=== PATIENT | female | born 1995 | race American Indian/Alaskan Native ===

== ENCOUNTER 2017-07-09 11:53 | Outpatient (CLI) | payer MEDICAID ==
[2017-07-09 12:30] VITALS: BP 119/67
[2017-07-09] MEDS ORDERED: LACTATED RINGERS 1,000 ML ONE (12:41)
[2017-07-09] MEDS ORDERED: XYLOCAINE 1% MPF 5 mL INFILTRATI ONE (13:11)
[2017-07-09] MEDS ORDERED: LACTATED RINGERS 500 ML IV ONE (13:12)
[2017-07-09] MEDS ORDERED: ROCEPHIN 500 MG in NACL 0.9% 50 ML IV NR (14:00)
--- NOTE | 2017-07-09 15:11 | History and Physical Report ---
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 Essential history this patient with viral infection this week with vomiting and diarrhea. He was seen in the physician's office complaining of contractions and she was sent over to triage for IV hydration and antibiotics to rule out UTI. In triage, she has a category 1 tracing and has received 2 units of IV fluid with contractions still present. 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 denies: smoking, alcohol abuse, prescription drug abuse, IV drug use - Obstetrical History Expected Date of Delivery: 08/04/17 Actual Gestation: 36 Week(s) 2 Day(s) : 3 Para: 2 Medications and Allergies Allergies Allergy/AdvReac Type Severity Reaction Status Date / Time No Known Allergies Allergy Unverified 11/02/15 09:44 Home Medications Medication Instructions Recorded Confirmed Last Taken Type Vit-Fe Fumar-FA [ 1 tab PO QDAY #90 tablet 11/02/15 06/29/16 2 Days Ago Rx Vitamin] Nitrofurantoin [place]/M-Cryst 100 mg PO Q12HR #14 capsule 02/21/16 06/29/16 2 Days Ago Rx [Macrobid CAP] Active Meds: Active Medications Ceftriaxone Sodium 500 mg/ (Sodium Chloride) 50 mls @ 100 mls/hr IV PREOP NR Stop: 07/09/17 23:59 Last Admin: 07/09/17 13:58 Dose: 100 mls/hr Review of Systems Constitutional: no fever, no chills, no weakness, no malaise Cardiovascular: no chest pain, no syncope, no lightheadedness, no shortness of breath, no dyspnea on exertion, no high blood pressure Respiratory: no cough, no shortness of breath, no dyspnea on exertion Gastrointestinal: abdominal pain, no nausea, no vomiting, no heartburn, no indigestion Genitourinary: no vaginal bleeding, no vaginal discharge, no leakage of fluid - Vital Signs Vital signs: Vital Signs Pulse Pulse Ox 93 H 95 07/09/17 12:25 07/09/17 12:25 Temp Pulse Resp BP Pulse Ox 98.0 F 102 H 18 119/67 96 07/09/17 12:29 07/09/17 15:07 07/09/17 12:29 07/09/17 12:29 07/09/17 15:07 - Physical Exam Cardiovascular: Regular rate, Normal S1, Normal S2 Lungs: Positive: Clear to auscultation, Normal air movement Abdomen: Positive: normal appearance, soft. Negative: distention, tenderness, guarding, rigidity Genitourinary (Female): Positive: normal external genitalia Uterus: Positive: enlarged (EFW ~ 3500). Negative: tender Adnexa: both: normal Extremities: Positive: normal - Obstetrical FHR: category 1 Cervical Dilatation: 4 (per RN) Results All other labs normal. Assessment and Plan A: 22-year-old 002 at 36+2 weeks with viral syndromefollowed by painful contractions -Cat 1 tracing -Cephalic presentation P: -Will repeat exam in 1-2 hours -If no cervical change, we'll discharge home - Patient Problems (1) 36 weeks gestation of Current Visit: Yes Status: Acute (2) Uterine contractions Current Visit: Yes Status: Acute
== END 2017-07-09 17:01 | disposition home or self-care (01) ==
LOC: TRG 11:53
PROVIDERS: ATTEND Obstetrics & Gynecology
DX: O47.03 False labor before 37 completed weeks of gestation, third trimester (principal); Z87.891 Personal history of nicotine dependence; Z3A.36 36 weeks gestation of pregnancy
CPT/HCPCS: 59025; 96360; J0696; J7120

== ENCOUNTER 2017-07-10 11:53 | Inpatient (IN) | payer MEDICAID ==
[2017-07-10] MEDS ORDERED: SUBLIMAZE IV PRN (12:10)
[2017-07-10] MEDS ORDERED: MINERAL OIL PO PRN (12:10)
[2017-07-10] MEDS ORDERED: ePHEDrine SULFATE IV PRN (12:10)
[2017-07-10] MEDS ORDERED: BRETHINE IVP PRN (12:10)
[2017-07-10] MEDS ORDERED: BRETHINE SUB-Q PRN (12:10)
--- NOTE | 2017-07-10 12:16 | History and Physical Report ---
History of Present Illness Date of examination: 07/10/17 Date of admission: 07/10/17 12:07 Chief complaint: Having contractions since 1100 History of present illness: 22yo now 36.3 weeks presents in active labor GBS unknown. care at [facility] since 31 weeks. HSV2 positive,Rubella NON immune. 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 Family/Genetic History: none Social history: no significant social history - Obstetrical History Expected Date of Delivery: 08/04/17 Actual Gestation: 36 Week(s) 3 Day(s) : 3 Para: 2 Number of Living Children: 2 Medications and Allergies Allergies Allergy/AdvReac Type Severity Reaction Status Date / Time No Known Allergies Allergy Unverified 11/02/15 09:44 Home Medications Medication Instructions Recorded Confirmed Last Taken Type Vit-Fe Fumar-FA [ 1 tab PO QDAY #90 tablet 11/02/15 06/29/16 2 Days Ago Rx Vitamin] Nitrofurantoin [place]/M-Cryst 100 mg PO Q12HR #14 capsule 02/21/16 06/29/16 2 Days Ago Rx [Macrobid CAP] Active Meds: Active Medications Ephedrine Sulfate (Ephedrine Sulfate) 10 mg IV Q2M PRN PRN Reason: Hypotension Stop: 07/10/17 12:15 Fentanyl (Sublimaze) 100 mcg IV Q2H PRN PRN Reason: Labor Pain Lactated Ringer's (Lactated Ringers) 1,000 mls @ 125 mls/hr IV DIRECT MERLIN Oxytocin/Sodium Chloride (Pitocin/Ns 20 Unit/1000ml Drip) 20 units in 1,000 mls @ 125 mls/hr IV DIRECT MERLIN Oxytocin/Sodium Chloride (Pitocin/Ns 30 Unit/500ml) 30 units in 500 mls @ 1 mls /hr IV TITR MERLIN; 1 MILLIUNITS/MIN PRN Reason: Protocol Mineral Oil (Mineral Oil) 30 ml PO QHS PRN PRN Reason: Constipation Terbutaline Sulfate (Brethine) 0.25 mg SUB-Q ONCE PRN PRN Reason: Hyperstimulation/Hypertonicity Stop: 07/10/17 12:11 Terbutaline Sulfate (Brethine) 0.25 mg IVP ONCE PRN PRN Reason: Hyperstimulation/Hypertonicity Stop: 07/10/17 12:11 Review of Systems All systems: negative - Vital Signs Vital signs: Vital Signs Temp Pulse Resp BP 97.1 F L 77 22 124/75 07/10/17 12:12 07/10/17 12:12 07/10/17 12:12 07/10/17 12:12 Temp Pulse Resp BP Pulse Ox 97.1 F L 93 H 22 124/75 99 07/10/17 12:12 07/10/17 12:15 07/10/17 12:12 07/10/17 12:15 07/10/17 12:14 - Physical Exam Breasts: Positive: deferred Cardiovascular: Regular rate Lungs: Positive: Clear to auscultation Abdomen: Positive: soft Vulva: both: normal Vagina: Positive: normal moisture Uterus: Positive: enlarged Adnexa: both: normal Deep Tendon Reflex Grade: Normal +2 - Obstetrical FHR: category 1 Uterine Contraction Monitor Mode: External Cervical Dilatation: 8 (arom clear) Cervical Effacement Percentage: 100 station: 0 Uterine Contraction Pattern: Regular Results All other labs normal. Assessment and Plan A: Active Labor @ 36.3 weeks P: Expect
[2017-07-10 12:44] LABS: Basophils % (Auto) 0.3 % (0.0-1.8); Hematocrit 34.8 % (30.3-42.9); Hemoglobin 11.2 gm/dl (10.1-14.3); Mean Corpuscular HGB Conc 32 % (30-34); Mean Corpuscular Hemoglobin 26 pg (28-32); Mean Corpuscular Volume 82 fl (79-97); Platelet Count 198 K/mm3 (140-440); Red Blood Count 4.25 M/mm3 (3.65-5.03); Red Cell Distribution Width 13.9 % (13.2-15.2); White Blood Count 7.4 K/mm3 (4.5-11.0)
[2017-07-10] MEDS ORDERED: LACTATED RINGERS 1,000 ML IV SCH (13:00)
[2017-07-10] MEDS ORDERED: PITOCin/NS 30 UNIT/500ML 30 UNITS/500 ML BAG IV SCH (13:00)
[2017-07-10] MEDS ORDERED: PITOCin/NS 20 UNIT/1000ML DRIP 20 UNITS/1,000 ML BAG IV SCH (13:00)
[2017-07-10] MEDS ORDERED: TYLENOL PO PRN (13:59)
[2017-07-10] MEDS ORDERED: LANSINOH TP PRN (13:59)
[2017-07-10] MEDS ORDERED: TUCKS PAD TP PRN (13:59)
[2017-07-10] MEDS ORDERED: BENADRYL PO PRN (13:59)
[2017-07-10] MEDS ORDERED: SODIUM CHLORIDE FLUSH SYRINGE 10 ML IV SCH (14:00)
--- NOTE | 2017-07-10 14:05 | Procedure Note ---
OB Delivery Note - Delivery Date of Delivery: 07/10/17 Surgeon: CARINE WALSH Estimated blood loss: 100cc - Vaginal Delivery presentation: vertex Delivery position: OA Intrapartum events: none Delivery induction: none Delivery augmentation: rupture of membranes Delivery monitor: external FHT, external uterine Route of delivery: Delivery placenta: spontaneous Delivery cord: nuchal cord Episiotomy: none Delivery laceration: none Anesthesia: local Delivery comments: of a viable female 6# 1 oz @ 1326 on 07/10/17 over intact perineum. Nuchal cord loose. Placenta delivered 3VCI. FF @ U-2 . Mother and baby doing well.
[2017-07-10] MEDS: MOTRIN PO SCH ×2 (15:12→22:05)
[2017-07-11 00:57] LABS: Hematocrit 34.9 % (30.3-42.9); Hemoglobin 11.4 gm/dl (10.1-14.3)
--- NOTE | 2017-07-11 10:14 | Progress Note ---
Assessment and Plan A: day 1 S/P of liveborn female on 07/10/17. P: Continue care as ordered. Anticipate discharge tomorrow. Subjective - Subjective Date of service: 07/11/17 Principal diagnosis: day 1 S/P Interval history: Patient is doing well. Ambulating well and voiding without difficulty. Tolerating a regular diet without nausea or vomiting. Bottlefeeding without difficulty. Patient reports small to moderate amount of lochia. She reports afterbirth pains and requests a stronger pain medication than Motrin. Patient denies headache, cough, shortness of breath, chest pain, abdominal pain, leg pain, heavy vaginal bleeding, or swelling. Patient reports: appetite normal, voiding normally, ambulating normally : doing well Objective - Vital Signs Latest vital signs: Vital Signs Temp Pulse Resp BP Pulse Ox 07/11/17 08:17 97.7 F 82 20 98/50 07/11/17 00:40 98.1 F 68 20 116/71 07/10/17 20:30 97.9 F 68 20 124/70 07/10/17 18:00 98.2 F 67 18 113/67 07/10/17 16:15 98.2 F 67 18 120/83 07/10/17 14:45 82 124/70 07/10/17 14:40 85 97 07/10/17 14:35 70 97 07/10/17 14:30 77 18 121/71 96 07/10/17 14:25 71 97 07/10/17 14:23 77 L 07/10/17 14:20 77 96 07/10/17 14:15 81 18 132/73 96 07/10/17 14:10 67 96 07/10/17 14:05 82 96 07/10/17 14:00 77 18 128/63 96 07/10/17 13:55 78 95 07/10/17 13:50 90 18 143/72 96 07/10/17 13:48 90 143/72 89 07/10/17 13:45 102 H 97 07/10/17 13:42 96.8 F L 92 H 18 135/76 99 07/10/17 13:41 92 H 135/76 07/10/17 13:40 91 H 99 07/10/17 13:16 105 H 132/72 07/10/17 13:00 76 130/66 07/10/17 12:45 87 139/71 07/10/17 12:19 86 99 07/10/17 12:15 93 H 124/75 07/10/17 12:14 98 H 99 07/10/17 12:12 97.1 F L 77 22 124/75 Intake and Output 07/10/17 07/11/17 07/11/17 22:59 06:59 14:59 Intake Total 360 360 Output Total 400 Balance -40 360 Intake: Oral 120 Intake, Free Water 360 240 Output: Urine 400 Void 400 Other: Total, Intake Amount 120 Total, Output Amount 400 # Voids Void 300 Estimated Blood Loss 100 - Exam Breasts: Present: deferred Cardiovascular: Present: Regular rate, No murmurs Lungs: Present: Clear to auscultation Abdomen: Present: normal appearance, soft. Absent: distention, tenderness, guarding Uterus: Present: normal, firm, fundal height below umbilicus. Absent: tenderness Extremities: Present: normal. Absent: edema - Labs Labs: Abnormal lab results 07/10/17 Range/Units 12:07 MCH 26 L (28-32) pg [place] % (Auto) 10.4 H (0.0-7.3) %
[2017-07-11] MEDS: MOTRIN PO SCH ×2 (10:40→18:23)
[2017-07-11] MEDS: NORCO 5/325 PO PRN ×2 (10:40→18:22)
[2017-07-12] MEDS: MOTRIN PO SCH ×2 (00:28→11:07)
--- NOTE | 2017-07-12 10:01 | Progress Note ---
Assessment and Plan A: day 2 S/P liveborn female . Normal course. Bottlefeeding. P: Discharge patient to home today. [facility] weeks. discharge instructions and warning signs discussed with patient. Advised pt. to avoid intercourse. Depo Provera 150 mg IM prior to discharge today. Subjective - Subjective Date of service: 07/12/17 Principal diagnosis: day 2 S/P Interval history: Patient is doing well. Ambulating well and voiding without difficulty. Tolerating a regular diet without nausea or vomiting. Bottlefeeding without difficulty. Patient reports small to moderate amount of lochia. She reports afterbirth pains and requests a stronger pain medication than Motrin. Patient denies headache, cough, shortness of breath, chest pain, abdominal pain, leg pain, heavy vaginal bleeding, or swelling. Patient reports: appetite normal, voiding normally, pain well controlled, ambulating normally : doing well Objective - Vital Signs Latest vital signs: Vital Signs Temp Pulse Resp BP 07/12/17 08:30 97.9 F 66 19 127/71 07/12/17 00:10 97.6 F 73 20 128/80 07/11/17 16:17 98.3 F 84 20 128/68 07/11/17 12:13 97.9 F 73 21 107/63 Intake and Output 07/11/17 07/12/17 07/12/17 22:59 06:59 14:59 Intake Total 480 360 120 Balance 480 360 120 Intake: Oral 240 120 Intake, Free Water 240 360 Other: Total, Intake Amount 120 Voiding Method Toilet # Voids 1 Void 1 1 # Bowel Movements 1 - Exam Breasts: Present: deferred Cardiovascular: Present: Regular rate, No murmurs Lungs: Present: Clear to auscultation Abdomen: Present: normal appearance, soft. Absent: distention, tenderness, guarding Uterus: Present: normal, firm, fundal height below umbilicus Extremities: Present: normal. Absent: edema
--- NOTE | 2017-07-12 10:04 | Discharge Summary ---
Providers - Providers Date of Admission: 07/10/17 12:07 Date of discharge: 07/12/17 Attending physician: NICHOL SEPULVEDA MD None Primary care physician: NICHOL SEPULVEDA MD Hospitalization Reason for admission: IUP at term Delivery: Episiotomy: none Laceration: none Other procedures: none complications: none Discharge diagnosis: IUP at term delivered [place] baby: female Condition at discharge: Good Disposition: DC-01 TO HOME OR SELFCARE - Discharge Diagnoses (1) Single live Status: Acute Plan - Provider Discharge Summary Activity: no sex for 6 weeks, no heavy lifting 4 weeks, no strenuous exercise Diet: routine Instructions: routine Additional instructions: [] Smoking cessation referral if applicable(refer to patient education folder for contact #) [] Refer to [facility] Booklet Call your doctor immediately for: * Fever > 100.5 * Heavy vaginal bleeding ( >1 pad per hour) * Severe persistent headache * Shortness of breath * Reddened, hot, painful area to leg or breast * Drainage or odor from incision. - Follow up plan Follow up: NICHOL CHEN MD [Primary Care Provider] - 7 Days
[2017-07-12] MEDS ORDERED: DEPO-PROVERA (CONTRACEPTION) IM ONE (11:00)
[2017-07-12] MEDS: NORCO 5/325 PO PRN (11:06)
[2017-07-12 15:55] VITALS: BP 119/78
== END 2017-07-12 16:30 | disposition home or self-care (01) | DRG 774 ==
LOC: TRG 11:53 → LD 11:54 → TRG 12:06 → LD 12:07 → OB 17:12
PROVIDERS: ADMIT Obstetrics & Gynecology; ATTEND Obstetrics & Gynecology
PROC: 10E0XZZ Delivery of Products of Conception, External Approach (ICD-10-PCS; principal; 2017-07-10)
DX: O98.52 Other viral diseases complicating childbirth (principal); O69.81X0 Labor and delivery complicated by cord around neck, without compression, not applicable or unspecified; B00.9 Herpesviral infection, unspecified; Z3A.36 36 weeks gestation of pregnancy; Z37.0 Single live birth
CPT/HCPCS: 36415; 85014; 85018; 85025; 85027; 86592; 86850; 86900; 86901; J1050; J2590; J3010; J7120

== ENCOUNTER 2017-12-07 13:12 | Emergency (ER) | payer MEDICAID | END 2017-12-07 21:50 | disposition left against medical advice (07) | LOC: ED 13:12 | DX: Z53.21 Procedure and treatment not carried out due to patient leaving prior to being seen by health care provider (principal) ==